=== PATIENT | female | born 2000 | race Two or more races ===

== ENCOUNTER 2022-09-01 18:37 | Emergency (ER) | payer OTHER ==
[~2022-09-01] VITALS: Ht 157.5 cm; Wt 79.4 kg
== END 2022-09-02 00:14 | disposition home or self-care (01) ==
LOC: ER 18:37
DX: B34.9 Viral infection, unspecified (principal); Z91.013 Allergy to seafood; Z20.822 Contact with and (suspected) exposure to COVID-19